=== PATIENT | female | born 1955 | race Caucasian/White ===

== ENCOUNTER → 2017-09-22 | Outpatient (CLI) | payer MEDICARE, OTHER ==
[~2017-09-22] MED LIST: ULTRAM ER300 MG PO
== END ==
LOC: COL.RAD 07:00
DX: K59.00 Constipation, unspecified (principal); R14.2 Eructation; R11.0 Nausea; R14.0 Abdominal distension (gaseous)
CPT/HCPCS: A9541

== ENCOUNTER → 2017-09-25 | Outpatient (CLI) | payer MEDICARE, OTHER | LOC: COL.RAD 07:46 | DX: K59.00 Constipation, unspecified (principal); R14.0 Abdominal distension (gaseous); R14.2 Eructation; R11.0 Nausea ==